=== PATIENT | female | born 1990 | race Caucasian/White ===

== ENCOUNTER → 2020-11-14 | Outpatient (CLI) | payer OTHER ==
[~2020-11-14] MED LIST: IOHEXOL 240 MG/ML 50ML VIAL. ONE; IOHEXOL 240 MG/ML 50ML VIAL. PO ONE; IOHEXOL 300 MG/ML 75 ML VIAL. IV ONE
[2020-11-14 14:24] LABS: CALCIUM 8.4 mg/dL (8.5-10.1); CREATININE 0.8 mg/dL (0.6-1.0); GFR 84.8; POTASSIUM 3.5 mmol/L (3.5-5.1)
[2020-11-14 14:26] LABS: BASO % 1 % (0-3); EOS # 0.1 x10^3/uL (0.0-0.7); EOS % 1 % (0-3); HEMATOCRIT 40.5 % (36.0-47.0); HEMOGLOBIN 13.9 g/dL (12.0-15.5); LYMPH # 2.1 x10^3/uL (1.0-4.8); LYMPH % 28 % (24-48); MEAN CORPUSCULAR HEMOGLOBIN 30 pg (25-35); MEAN CORPUSCULAR HGB CONC 34 g/dL (31-37); MEAN CORPUSCULAR VOLUME 87 fL (79-100); MONO # 0.8 x10^3/uL (0.0-1.1); MONO % 11 % (0-9); NEUT # 4.5 x10^3uL (1.8-7.7); NEUT % 60 % (31-73); PLATELET COUNT 251 x10^3/uL (140-400); RED BLOOD COUNT 4.67 x10^6/uL (3.50-5.40); RED CELL DISTRIBUTION WIDTH 12.6 % (11.5-14.5); WHITE BLOOD COUNT 7.5 x10^3/uL (4.0-11.0)
[2020-11-14 14:30] LABS: ALBUMIN 3.1 g/dL (3.4-5.0); ALBUMIN/GLOBULIN RATIO 0.9 (1.0-1.7); TOTAL BILIRUBIN 0.3 mg/dL (0.2-1.0); TOTAL PROTEIN 6.6 g/dL (6.4-8.2)
--- NOTE | 2020-11-14 14:34 | RAD ---
Examination: CT of the abdomen pelvis with oral and IV contrast HISTORY: History of epigastric pain, diarrhea COMPARISON: None TECHNIQUE: Axial CT images of the abdomen pelvis were performed with oral and IV contrast. Coronal an d sagittal reformats are performed Exposure: One or more of the following individualized dose reduction techniques were utilized for thi s examination: 1. Automated exposure control 2. Adjustment of the mA and/or kV according to patient size 3. Use of iterative reconstruction technique FINDINGS: The bibasilar lungs are clear. No evidence of free air identified in the abdomen. Mild decreased att enuation within the liver likely hepatic steatosis. The spleen, adrenals grossly appears unremarkable . Cholecystectomy changes identified. Small hiatal hernia. The stomach is mildly distended with visua lized pancreas grossly appears unremarkable. Mild fluid distended small bowel loops.. Moderate thicke antonio appearance of the wall of the colon throughout with surrounding mild fat stranding throughout. Ur inary bladder is mildly distended The bilateral kidneys enhance symmetrically. Cystic structure identified in the right adnexa measurin g 3.4 x 2.9 cm likely cyst or cystic lesion no evidence of lytic bony destructive lesion IMPRESSION: 1. Moderate thickened appearance of the wall of the colon throughout with surrounding mild fat stran ding throughout likely colitis. 2. Cystic structure identified in the right adnexa measuring 3.4 x 2.9 cm likely cyst or cystic lesi on. Follow-up nonemergent ultrasound pelvis can be considered. 3. Mild hepatic steatosis. Electronically signed by: Jose Miguel Salomon MD (11/14/2020 2:31 PM) [id number]
== END ==
LOC: CT 12:30
PROVIDERS: ATTEND Family Medicine
DX: K31.89 Other diseases of stomach and duodenum (principal); K44.9 Diaphragmatic hernia without obstruction or gangrene; N32.89 Other specified disorders of bladder; R19.7 Diarrhea, unspecified; Z90.49 Acquired absence of other specified parts of digestive tract
CPT/HCPCS: 36415; 74177; 80053; 83690; 85025; Q9966; Q9967